=== PATIENT | male | born 1960 | race African-American/Black ===

== ENCOUNTER 2018-03-11 14:49 | Emergency (ER) | payer BC ==
[~2018-03-11] VITALS: Ht 180.3 cm; Wt 82.0 kg
[~2018-03-11 14:49] MED LIST: JANUMET; NIFEDIPINE; RAMIPRIL; TRIA1CAP35 PO
[2018-03-11 15:12] VITALS: BP 163/94
== END 2018-03-11 15:13 | disposition home or self-care (01) ==
LOC: ER 14:49
DX: T87.89 Other complications of amputation stump (principal); L89.899 Pressure ulcer of other site, unspecified stage; R03.0 Elevated blood-pressure reading, without diagnosis of hypertension
CPT/HCPCS: 99281